=== PATIENT | male | born 1980 | race Caucasian/White ===

== ENCOUNTER 2019-08-18 10:15 | Emergency (ER) | payer BC ==
[2019-08-18 10:27] VITALS: Wt 89.1 kg
[2019-08-18] MEDS ORDERED: BACLOFEN20 M1 PO (12:32)
[2019-08-18] MEDS ORDERED: VOLTAREN75 MG PO (12:32)
[2019-08-18 12:41] VITALS: BP 142/84
== END 2019-08-18 12:41 | disposition home or self-care (01) ==
LOC: D.ER 10:15
DX: M79.10 Myalgia, unspecified site (principal); V86.69XA Passenger of other special all-terrain or other off-road motor vehicle injured in nontraffic accident, initial encounter; Y93.9 Activity, unspecified; Y92.9 Unspecified place or not applicable; R07.9 Chest pain, unspecified; M54.2 Cervicalgia; M54.9 Dorsalgia, unspecified